=== PATIENT | female | born 1970 | race Caucasian/White ===

== ENCOUNTER 2018-09-10 06:44 | Inpatient (IN) | payer MEDICARE, MEDICAID | END 2018-09-17 19:45 | disposition home or self-care (01) | LOC: PCU 3S 09-12 15:55 → ER 06:44 → ED HOLD 08:54 → CICU 2S 12:05 | DX: A41.9 Sepsis, unspecified organism (principal); J96.00 Acute respiratory failure, unspecified whether with hypoxia or hypercapnia; J84.116 Cryptogenic organizing pneumonia; I50.9 Heart failure, unspecified ==